=== PATIENT | male | born 2000 | race Caucasian/White ===

== ENCOUNTER 2022-12-27 14:13 | Emergency (ER) | payer OTHER ==
[~2022-12-27] VITALS: Ht 177 cm; Wt 70.0 kg
[2022-12-27 14:26] VITALS: BP 135/77
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
== END 2022-12-27 15:45 | disposition home or self-care (01) ==
LOC: ER FS 14:18
DX: S09.90XA Unspecified injury of head, initial encounter (principal); S20.229A Contusion of unspecified back wall of thorax, initial encounter; S40.022A Contusion of left upper arm, initial encounter; S40.021A Contusion of right upper arm, initial encounter; F17.290 Nicotine dependence, other tobacco product, uncomplicated; V48.5XXA Car driver injured in noncollision transport accident in traffic accident, initial encounter; Y92.410 Unspecified street and highway as the place of occurrence of the external cause
CPT/HCPCS: 70450; 71046; 72125; 99282

== ENCOUNTER 2023-02-17 12:59 | Emergency (ER) | payer OTHER ==
[~2023-02-17] VITALS: Ht 177.8 cm; Wt 63.5 kg
--- NOTE | 2023-02-17 13:28 | ED General ---
General Chief Complaint: Oral/Throat Problems Stated Complaint: SORE THROAT Nursing Triage Note: Patient presents to the ED with c/o sore throat and fatigue. States 2 days ago experienced nausea, vomiting, and fever but those symptoms have since resolved. Now just lingering sore throat and fatigue. Is using dayquil and nyquil for symptoms, last used yesterday evening. Source of Information: Patient Exam Limitations: No Limitations History of Present Illness Date Seen by Provider: Feb 17, 2023 Time Seen by Provider: 13:05 Initial Comments This 22-year-old young man presents to the emergency room with acute illness that presently includes fatigue and sore throat. A couple days ago he ad ditionally had fever and vomiting. Fever and vomiting resolved. He has been using DayQuil and NyQuil. He denies any health problems or prescription medications. Vital signs are stable during assessment. He denies any ill exposures. No diarrhea. Allergies and Home Medications Allergies Coded Allergies: No Known Drug Allergies (Unverified , 12/27/22) Patient Home Medication List Home Medication List Reviewed: Yes Review of Systems Review of Systems Constitutional: see HPI EENTM: see HPI Respiratory: no symptoms reported Cardiovascular: no symptoms reported Gastrointestinal: see HPI Genitourinary: no symptoms reported Musculoskeletal: no symptoms reported Skin: no symptoms reported Psychiatric/Neurological: No Symptoms Reported Hematologic/Lymphatic: No Symptoms Reported Immunological/Allergic: no symptoms reported Past Oabjadb-Frzcwy-Oshthk Hx Patient Social History Tobacco Use?: No Use of E-Cig and/or Vaping dev: Yes E-Cig or Vaping type used: Nicotine Use of E-Cig and/or Vaping Cole: Current Everyday User Substance use?: No Alcohol Use?: Yes Alcohol Frequency: Once in a while Pt feels they are or have been: No Immunizations Up To Date First/Initial COVID19 Vaccinat: Denies Past Medical History Surgery/Hospitalization HX: Denies Surgeries: No Respiratory: No Cardiac: No Neurological: No Genitourinary: No Gastrointestinal: No Musculoskeletal: No Endocrine: No HEENT: No Cancer: No Psychosocial: No Integumentary: No Physical Exam Vital Signs Vital Signs - First Documented 02/17/23 12:59 Temp 37.3 Pulse 85 Resp 16 B/P (MAP) 148/71 (96) Pulse Ox 100 O2 Delivery Room Air Capillary Refill : Less Than 3 Seconds Height, Weight, BMI Height: '" Weight: lbs. oz. kg; 20.00 BMI Method: General Appearance: No Apparent Distress, WD/WN HEENT: PERRL/EOMI, TMs Normal, Normal ENT Inspection, Pharyngeal Erythema, Tonsillar Enlargement Neck: Normal Inspection Respiratory: Lungs Clear, Normal Breath Sounds, No Accessory Muscle Use Cardiovascular: Regular Rate, Rhythm, No Edema Gastrointestinal: Non Tender, Soft Extremity: Normal Inspection, No Pedal Edema Neurologic/Psychiatric: Alert, Oriented x3, No Motor/Sensory Deficits, Normal Mood/Affect Skin: Normal Color, Warm/Dry Progress/Results/Core Measures Suspected Sepsis SIRS Temperature: Pulse: 85 Respiratory Rate: 16 Blood Pressure 148 /71 Mean: 96 Results/Orders Lab Results Laboratory Tests Test 02/17/23 13:15 02/17/23 13:44 Range/Units Group A Streptococcus Screen NEGATIVE NEGATIVE SARS-CoV-2 RNA (RT-PCR) Not Detected Not Detecte My Orders Orders - BASIM RUBIO MD Rapid Strep A Screen (02/17/23 13:19) Throat Culture Strep A Confirm (02/17/23 13:15) Covid 19 Inhouse Test (02/17/23 13:48) Vital Signs/I&O 02/17/23 02/17/23 12:59 13:53 Temp 37.3 37.3 Pulse 85 85 Resp 16 16 B/P (MAP) 148/71 (96) 148/71 Pulse Ox 100 100 O2 Delivery Room Air Room Air Capillary Refill : Less Than 3 Seconds Blood Pressure Mean: 96 Progress Note : Progress Note Rapid strep test was negative. This was followed by a COVID-19 test. Patient declined a monoscreen. Patient decided to be discharged before the COVID test resulted. He was contacted later with the negative result. Symptomatic care was recommended. See discharge instructions. Departure Impression Primary Impression: Pharyngitis Qualified Codes: J02.9 - Acute pharyngitis, unspecified Disposition: 01 HOME, SELF-CARE Condition: Stable Departure-Patient Inst. Decision time for Depature: 13:50 Referrals: SHAUNA GUTIERRZE MD (PCP) Primary Care Physician Patient Instructions: COVID-19 ED, Sore Throat, Adult ED Add. Discharge Instructions: Drink plenty of clear liquids to stay well-hydrated. You may take ibuprofen up to 600 mg every 6 hours as needed and/or Tylenol (acetaminophen) up to 1000 mg every 6 hours as needed for pain or fever. Your rapid strep test was negative in the emergency room, but a backup culture will be performed. Results of this culture should be available in about 48 hours. Treatment with antibiotics may be necessary if the culture results are positive. If your COVID-19 test is positive, you will need to quarantine for an additional 2 days after today. If your symptoms are improved by February 20, you may come out of quarantine, but you should mask for an additional 5 days when you are around others. Return to care if you have worsening symptoms despite following these instructions. All discharge instructions reviewed with patient and/or family. Voiced understanding. BASIM RUBIO MD Feb 17, 2023 13:28
[2023-02-17 13:53] VITALS: BP 148/71
[2023-02-18] MEDS ORDERED: AMOX500C2 PO (10:15)
== END 2023-02-17 13:53 | disposition home or self-care (01) ==
LOC: EDUNIT# 12:59 → ER FS 13:02
DX: J02.9 Acute pharyngitis, unspecified (principal); F17.290 Nicotine dependence, other tobacco product, uncomplicated; Z20.822 Contact with and (suspected) exposure to COVID-19; Z28.310 Unvaccinated for COVID-19
CPT/HCPCS: 87430; 87636; 99283